=== PATIENT | female | born 1995 | race African-American/Black ===

== ENCOUNTER 2019-03-17 21:00 | Emergency (ER) | payer BC ==
[~2019-03-17] VITALS: Ht 180.3 cm; Wt 61.2 kg
[2019-03-17 21:28] VITALS: Ht 180.3 cm; Wt 61.2 kg
[2019-03-18 00:20] VITALS: BP 139/64
== END 2019-03-18 00:21 | disposition home or self-care (01) ==
LOC: ED 21:00
DX: S61.412A Laceration without foreign body of left hand, initial encounter (principal); S70.02XA Contusion of left hip, initial encounter; V49.88XA Car occupant (driver) (passenger) injured in other specified transport accidents, initial encounter; Y93.I9 Activity, other involving external motion; Y92.413 State road as the place of occurrence of the external cause; Y99.8 Other external cause status
CPT/HCPCS: J2001

== ENCOUNTER 2019-03-20 08:45 | Emergency (ER) | payer BC ==
[~2019-03-20] VITALS: Ht 180.3 cm; Wt 65.8 kg
[2019-03-20 08:49] VITALS: BP 104/69; Ht 180.3 cm; Wt 65.8 kg
== END 2019-03-20 09:21 | disposition home or self-care (01) ==
LOC: ED 08:45
DX: S61.412D Laceration without foreign body of left hand, subsequent encounter (principal); X58.XXXD Exposure to other specified factors, subsequent encounter

== ENCOUNTER 2019-04-03 09:55 | Emergency (ER) | payer BC ==
[~2019-04-03] VITALS: Ht 180.3 cm; Wt 65.3 kg
[2019-04-03 10:06] VITALS: Ht 180.3 cm; Wt 65.3 kg
[2019-04-03 11:35] VITALS: BP 107/61
== END 2019-04-03 11:35 | disposition home or self-care (01) ==
LOC: ED 09:55
DX: S61.412D Laceration without foreign body of left hand, subsequent encounter (principal); V49.9XXD Car occupant (driver) (passenger) injured in unspecified traffic accident, subsequent encounter